=== PATIENT | female | born 1995 | race Caucasian/White ===

== ENCOUNTER 2018-12-23 19:31 | Emergency (ER) | payer SELFPAY ==
[~2018-12-23] VITALS: Ht 154.9 cm; Wt 54.4 kg
[2018-12-23] MEDS ORDERED: ONDANSETRON PF 4 MG/2 ML VIAL. IV ONE (21:00)
[2018-12-23] MEDS ORDERED: fentaNYL PF VIAL 100 MCG/2 ML VIAL IV ONE ×2 (21:00→23:30)
[2018-12-23 21:02] LABS: BASO # 0.1 x10^3/uL (0.0-0.2); BASO % 0 % (0-3); EOS % 0 % (0-3); HEMATOCRIT 39.4 % (36.0-47.0); HEMOGLOBIN 13.6 g/dL (12.0-15.5); LYMPH # 1.2 x10^3/uL (1.0-4.8); LYMPH % 9 % (24-48); MEAN CORPUSCULAR HEMOGLOBIN 32 pg (25-35); MEAN CORPUSCULAR HGB CONC 35 g/dL (31-37); MEAN CORPUSCULAR VOLUME 92 fL (79-100); MONO # 0.4 x10^3/uL (0.0-1.1); MONO % 3 % (0-9); NEUT # 12.3 x10^3/uL (1.8-7.7); NEUT % 88 % (31-73); PLATELET COUNT 251 x10^3/uL (140-400); RED BLOOD COUNT 4.31 x10^6/uL (3.50-5.40); RED CELL DISTRIBUTION WIDTH 13.5 % (11.5-14.5); WHITE BLOOD COUNT 14.1 x10^3/uL (4.0-11.0)
--- NOTE | 2018-12-23 21:03 | PHYS DOC ---
Adult General Chief Complaint Chief Complaint: NAUSEA/VOMITING/DIARRHA HPI HPI Patient is a 23-year-old female who presents with complaint of right upper quadrant abdominal pain that started this morning at about 10:00. Patient states that she has had nausea and vomiting since onset of the pain. She denies any diarrhea. She states that she has had 2 normal bowel movements today. Patient states the pain does radiate into her back. She does not believe that she's been running a fever. She rates her pain to be a 9 out of 10. She states that nothing is improving her pain and trying to eat or drink worsens the pain.[] Review of Systems Review of Systems Constitutional: Denies fever or chills [] Respiratory: Denies cough or shortness of breath [] Cardiovascular: No additional information not addressed in HPI [] GI: Complains of abdominal pain with nausea and vomiting. Denies diarrhea [] : Denies dysuria or hematuria [] Musculoskeletal: Complains of back pain [] All other systems were reviewed and found to be within normal limits, except as documented in this note. Current Medications Current Medications Current Medications Medications (Trade) Dose Ordered Sig/Zion Start Time Stop Time Status Last Admin Dose Admin Diphenhydramine HCl (Benadryl) 25 mg 1X ONCE 12/23/18 23:00 12/23/18 23:01 DC 12/23/18 22:56 25 MG Fentanyl Citrate (Fentanyl 2ml Vial) 50 mcg 1X ONCE 12/23/18 23:30 12/23/18 23:31 12/23/18 22:56 50 MCG Info (CONTRAST GIVEN -- Rx MONITORING) 1 each PRN DAILY PRN 12/23/18 21:30 12/25/18 21:29 Iohexol (Omnipaque 300 Mg/ml) 75 ml 1X ONCE 12/23/18 22:00 12/23/18 22:01 DC 12/23/18 21:31 75 ML Metoclopramide HCl (Reglan Vial) 10 mg 1X ONCE 12/23/18 23:00 12/23/18 23:01 DC 12/23/18 22:56 10 MG Ondansetron HCl (Zofran) 4 mg 1X ONCE 12/23/18 21:00 12/23/18 21:01 DC 12/23/18 20:54 4 MG Sodium Chloride 1,000 ml @ 1,000 mls/hr Q1H 8/29/19 21:30 12/23/18 22:29 DC 12/23/18 21:38 1,000 MLS/HR Allergies Allergies Allergies Coded Allergies Type Severity Reaction Last Updated Verified No Known Drug Allergies 12/23/18 No Physical Exam Physical Exam Constitutional: Well developed, well nourished, in moderate distress. [] HENT: Normocephalic, atraumatic, bilateral external ears normal, oropharynx moist, no oral exudates, nose normal. [] Eyes: PERRLA, EOMI, conjunctiva normal, no discharge. [] Neck: Normal range of motion, no tenderness, supple, no stridor. [] Cardiovascular:Heart rate regular rhythm, no murmur [] Lungs & Thorax: Bilateral breath sounds clear to auscultation [] Abdomen: Bowel sounds diminished, soft, with significant right sided abdominal tenderness. [] Skin: Warm, dry, no erythema, no rash. [] Extremities: No tenderness, no cyanosis, no clubbing, ROM intact, no edema. [] Neurologic: Alert and oriented X 3, no focal deficits noted. [] Current Patient Data Vital Signs Vital Signs Date Time Temp Pulse Resp B/P (MAP) Pulse Ox O2 Delivery O2 Flow Rate FiO2 12/23/18 22:56 99 Room Air 12/23/18 20:30 98.0 89 19 112/70 (84) 99.0 98.0 Lab Values Laboratory Tests Test 12/23/18 20:40 White Blood Count 14.1 x10^3/uL (4.0-11.0) H Red Blood Count 4.31 x10^6/uL (3.50-5.40) Hemoglobin 13.6 g/dL (12.0-15.5) Hematocrit 39.4 % (36.0-47.0) Mean Corpuscular Volume 92 fL (79-100) Mean Corpuscular Hemoglobin 32 pg (25-35) Mean Corpuscular Hemoglobin Concent 35 g/dL (31-37) Red Cell Distribution Width 13.5 % (11.5-14.5) Platelet Count 251 x10^3/uL (140-400) Neutrophils (%) (Auto) 88 % (31-73) H Lymphocytes (%) (Auto) 9 % (24-48) L Monocytes (%) (Auto) 3 % (0-9) Eosinophils (%) (Auto) 0 % (0-3) Basophils (%) (Auto) 0 % (0-3) Neutrophils # (Auto) 12.3 x10^3/uL (1.8-7.7) H Lymphocytes # (Auto) 1.2 x10^3/uL (1.0-4.8) Monocytes # (Auto) 0.4 x10^3/uL (0.0-1.1) Eosinophils # (Auto) 0.0 x10^3/uL (0.0-0.7) Basophils # (Auto) 0.1 x10^3/uL (0.0-0.2) Segmented Neutrophils % 93 % (35-66) H Lymphocytes % 6 % (24-48) L Monocytes % 1 % (0-10) Platelet Estimate Adequate (ADEQUATE) Sodium Level 142 mmol/L (136-145) Potassium Level 4.0 mmol/L (3.5-5.1) Chloride Level 107 mmol/L (98-107) Carbon Dioxide Level 21 mmol/L (21-32) Anion Gap 14 (6-14) Blood Urea Nitrogen 13 mg/dL (7-20) Creatinine 0.8 mg/dL (0.6-1.0) Estimated GFR (Cockcroft-Gault) 88.9 BUN/Creatinine Ratio 16 (6-20) Glucose Level 120 mg/dL (70-99) H Calcium Level 9.1 mg/dL (8.5-10.1) Total Bilirubin 0.4 mg/dL (0.2-1.0) Aspartate Amino Transferase (AST) 15 U/L (15-37) Alanine Aminotransferase (ALT) 12 U/L (14-59) L Alkaline Phosphatase 59 U/L (46-116) Total Protein 8.3 g/dL (6.4-8.2) H Albumin 4.6 g/dL (3.4-5.0) Albumin/Globulin Ratio 1.2 (1.0-1.7) Lipase 87 U/L (73-393) Laboratory Tests 12/23/18 20:40 Laboratory Tests 12/23/18 20:40 EKG EKG [] Radiology/Procedures Radiology/Procedures [] Impressions: PROCEDURE: CT ABD PELV W/ IV CONTRST ONLY CT ABD PELV W/ IV CONTRST ONLY Indication: Right-sided abdominal pain Technique: Postcontrast CT imaging was performed of the abdomen pelvis, multiplanar reconstruction images submitted. No oral contrast was given. One or more of the following individualized dose reduction techniques were utilized for this examination: 1. Automated exposure control 2. Adjustment of the mA and/or kV according to patient size 3. Use of iterative reconstruction technique. Comparison: None Findings: There is no abnormality of the limited visualized lung bases. No focal abnormality is identified liver, spleen, pancreas. Otherwise present without obvious intraluminal abnormality by CT. Both kidneys enhance, no hydronephrosis. There is a small hypodense lesion of the mid right kidney about 0.5 cm otherwise too small to accurately characterize. There is no significant adrenal nodularity. Accurate evaluation of bowel is limited without oral contrast. Bowel is not considered significantly dilated. There is no free air. There is mild dependent free fluid in the pelvis, density measurements greater than simple fluid about 30 Hounsfield units. Right aspect of the uterus appears more heterogeneous. There is also some heterogeneity of the parametrial region somewhat greater on the right extending to expected adnexal region. Appendix courses into the posterior right pelvic region near area of the heterogeneous density of the right adnexa, proximal appendix not dilated although cannot accurately evaluate more distal aspect of appendix. Stomach is distended. There is tampon present. IMPRESSION: 1. There is mild complex appearing free fluid dependently in the pelvis. There is some heterogeneity of the right aspect of the uterus and also in the parametrial region extending into the right adnexal region. The appendix courses into this region of heterogeneity although the proximal appendix appears normal, cannot exclude distal appendicitis by this exam. However findings of the right adnexal region could be a component of ruptured hemorrhagic cyst. 2. Stomach is distended. Electronically signed by: Jose Rene MD (12/23/2018 9:57 PM) [facility] Course & Med Decision Making Course & Med Decision Making Pertinent Labs and Imaging studies reviewed. (See chart for details) [] Dragon Disclaimer Dragon Disclaimer This electronic medical record was generated, in whole or in part, using a voice recognition dictation system. Departure Departure Impression: Primary Impression: Abdominal pain Additional Impression: Nausea & vomiting Disposition: 01 HOME, SELF-CARE Condition: STABLE Referrals: NO PCP (PCP) Patient Instructions: Abdominal Pain, Nausea and Vomiting Additional Instructions: Take prescribed medications as directed and follow-up with your primary care provider in the next few days. If symptoms worsen, return to the emergency room. Scripts Hydrocodone/Apap 5-325 (NORCO 5-325 TABLET) 1 Each Tablet 1-2 EACH PO PRN Q6HRS PRN for PAIN, #15 as needed for pain Prov: ALVERTO SARAVIA Jr. DO 12/23/18 Promethazine HCl (Phenergan) 12.5 Mg Supp.rect 12.5 MG RC Q6HRS PRN for NAUSEA, #12 SUPP.RECT Prov: ALVERTO SARAVIA Jr. DO 12/23/18 Ondansetron Hcl (ZOFRAN) 4 Mg Tablet 4 MG PO PRN TID PRN for NAUSEA, #15 nausea/vomiting Prov: ALVERTO SARAVIA Jr. DO 12/23/18 Problem Qualifiers Primary Impression: Abdominal pain Abdominal location: right upper quadrant Qualified Codes: R10.11 - Right upper quadrant pain Additional Impression: Nausea & vomiting Vomiting type: unspecified Vomiting Intractability: non-intractable Qualified Codes: R11.2 - Nausea with vomiting, unspecified ALVERTO SARAVIA Jr. DO Dec 23, 2018 21:03
[2018-12-23 21:11] LABS: CALCIUM 9.1 mg/dL (8.5-10.1); CREATININE 0.8 mg/dL (0.6-1.0); GFR 88.9
[2018-12-23 21:16] LABS: ALBUMIN 4.6 g/dL (3.4-5.0); ALBUMIN/GLOBULIN RATIO 1.2 (1.0-1.7); TOTAL BILIRUBIN 0.4 mg/dL (0.2-1.0); TOTAL PROTEIN 8.3 g/dL (6.4-8.2)
[2018-12-23 21:17] LABS: % LYMPHS 6 % (24-48); % MONOS 1 % (0-10); % SEGS 93 % (35-66)
[2018-12-23 21:18] LABS: PLT ESTIMATE ADEQUATE (ADEQUATE)
[2018-12-23] MEDS ORDERED: CONTRAST GIVEN. MC PRN (21:30)
[2018-12-23] MEDS ORDERED: IV NORMAL SALINE 1000ML BAG 1,000 ML IV SCH (21:30)
[2018-12-23] MEDS ORDERED: IOHEXOL 300 MG/ML 100ML VIAL. IV ONE (22:00)
--- NOTE | 2018-12-23 22:00 | RAD ---
CT ABD PELV W/ IV CONTRST ONLY Indication: Right-sided abdominal pain Technique: Postcontrast CT imaging was performed of the abdomen pelvis, multiplanar reconstruction images submitted. No oral contrast was given. One or more of the following individualized dose reduction techniques were utilized for this examination: 1. Automated exposure control 2. Adjustment of the mA and/or kV according to patient size 3. Use of iterative reconstruction technique. Comparison: None Findings: There is no abnormality of the limited visualized lung bases. No focal abnormality is identified liver, spleen, pancreas. Otherwise present without obvious intraluminal abnormality by CT. Both kidneys enhance, no hydronephrosis. There is a small hypodense lesion of the mid right kidney about 0.5 cm otherwise too small to accurately characterize. There is no significant adrenal nodularity. Accurate evaluation of bowel is limited without oral contrast. Bowel is not considered significantly dilated. There is no free air. There is mild dependent free fluid in the pelvis, density measurements greater than simple fluid about 30 Hounsfield units. Right aspect of the uterus appears more heterogeneous. There is also some heterogeneity of the parametrial region somewhat greater on the right extending to expected adnexal region. Appendix courses into the posterior right pelvic region near area of the heterogeneous density of the right adnexa, proximal appendix not dilated although cannot accurately evaluate more distal aspect of appendix. Stomach is distended. There is tampon present. IMPRESSION: 1. There is mild complex appearing free fluid dependently in the pelvis. There is some heterogeneity of the right aspect of the uterus and also in the parametrial region extending into the right adnexal region. The appendix courses into this region of heterogeneity although the proximal appendix appears normal, cannot exclude distal appendicitis by this exam. However findings of the right adnexal region could be a component of ruptured hemorrhagic cyst. 2. Stomach is distended. Electronically signed by: Jose Rene MD (12/23/2018 9:57 PM) [facility]
[2018-12-23] MEDS ORDERED: METOCLOPRAMIDE HCL 10 MG/2 ML VIAL. IV ONE (23:00)
[2018-12-23] MEDS ORDERED: diphenhydrAMINE 50 MG/ML VIAL IVP ONE (23:00)
--- NOTE | 2018-12-23 23:02 | RAD ---
PELVIS ULTRASOUND History: Right lower quadrant pain for one day Comparison: CT exam the same day Findings: Multiple transabdominal sonographic images of the pelvis are submitted. Uterus measured 7.6 x 3.5 x 3.7 cm. Endometrium measured about 0.7 cm. Right ovary measured 3.9 x 2.6 x 2.4 seen. Left ovary measured 3.8 x 3 x 1.9 cm. There is normal low resistance vascularity of the bilateral ovaries. No significant cystic lesion is demonstrated of either ovary. There is mild free fluid in the pelvis, nearly anechoic on ultrasound suggestive of more simple fluid. Impression: 1. There is mild simple appearing free fluid in the pelvis, no other significant abnormality demonstrated. Electronically signed by: Jose Rene MD (12/23/2018 10:59 PM) [facility]
[2018-12-23] MEDS ORDERED: ONDA4TAB7 PO (23:31)
[2018-12-23] MEDS ORDERED: PROM12.553 RC (23:31)
[2018-12-23] MEDS ORDERED: HYDR-3164 PO (23:31)
[2018-12-23 23:38] VITALS: BP 89/45
== END 2018-12-24 00:07 | disposition home or self-care (01) ==
LOC: ER 19:31
DX: R10.11 Right upper quadrant pain (principal); R11.2 Nausea with vomiting, unspecified; M54.9 Dorsalgia, unspecified
CPT/HCPCS: 36415; 74177; 76856; 80053; 83690; 85007; 85025; 96361; 96374; 96375; 96376; 99285; J1200; J2405; J2765; J3010; J7030; Q9967